=== PATIENT | female | born 1955 | race Two or more races ===

== ENCOUNTER 2025-02-02 09:38 | Emergency (ER) | payer MEDICAID, SELFPAY ==
[2025-02-02 09:47] VITALS: BP 164/78; PULSE 66; RESP 19; TEMP 36.6; O2SAT 99; BMI 31.3
--- NOTE | 2025-02-02 09:49 | EKG_ITS ---
[facility] Test Date: 2025-02-02 Pat Name: ALVARO PEACE Department: Room: - Gender: Female [employer]: : 1955 Requested By: ED Temporary Provider Order Number: [id number] Reading MD: ED Temporary Provider Measurements Intervals [place] Rate: 66 P: 6 IA: 151 QRS: 8 QRSD: 86 T: 61 QT: 404 QTc: 426 Interpretive Statements SINUS RHYTHM Compared to ECG 06/01/2022 10:04:10 Sinus bradycardia no longer present /store/S0/[id number].pdf
--- NOTE | 2025-02-02 10:01 | XR_ITS ---
Examination: PA lateral chest 2 views Technique: Upright PA lateral chest 2 views Date and time: February 02, thousand 25, 10:29 AM Indications: Onset chest pain today. Findings: Mild enlargement cardiac contour Moderate vascular congestion. No lobar pneumonia. No abdirashid pulmonary edema. Significant osteopenia. Impression: Moderate vascular congestion.
--- NOTE | 2025-02-02 10:02 | PD.EDRME ---
Rapid Medical Screening Exam RME Arrival date/time: 02/02/25 09:38 This is a 69-year-old female that comes in with multiple complaints. Patient states she has had left-sided abdominal pain since yesterday. Patient states today her abdominal pain started radiating to her chest and now her chest and the left side of her arm hurts. Patient states she gets short of breath. Patient also complains of back pain. Patient denies fever, nausea, vomiting. Patient has a history of prediabetes and high blood pressure. Patient also has a history of anxiety. Patient denies any urinary symptoms. I have greeted and performed a focused initial assessment of this patient. Initial appropriate labs ordered at this time. A comprehensive ED assessment and evaluation of the patient and analysis of all test and completion of medical decision making process will be conducted by additional ED provider. Chief Complaint: General Adult/Misc Complain Time Seen by Provider: 02/02/25 09:45 Vital signs: Vital Signs Temperature 97.8 F 02/02/25 09:47 Pulse Rate 66 02/02/25 09:47 Respiratory Rate 19 02/02/25 09:47 Blood Pressure 164/78 H 02/02/25 09:47 Pulse Oximetry (%) 99 02/02/25 09:47 Oxygen Delivery Method Room Air 02/02/25 09:47
[2025-02-02 11:05] LABS: Collection Type, Urine Voided
[2025-02-02 11:13] LABS: Bilirubin,Urine Negative (Negative); Blood,Urine Trace (Negative); Clarity,Urine Clear (Clear/Hazy); Color,Urine Colorless (Lt Yel-Yel); Culture Indicated,Urine Not Indicated; Glucose, Urine Negative (Negative); Ketones,Urine Negative (Negative); Leukocyte Esterase,Urine Negative (Negative); Nitrite,Urine Negative (Negative); PH,Urine 6.5 (5.0-7.0); Protein,Urine Negative (Neg - Trace); RBC,Urine 2 /hpf (0-3); Specific Gravity,Urine 1.010 (1.001-1.035); Squamous Epithelial Cell,Urine < 1 /hpf (0-5); Urobilinogen,Urine Negative mg/dL (0.0-1.0); WBC,Urine 1 /hpf (0-5)
[2025-02-02 12:06] LABS: Basophils # (Auto) 0.0 Thou/mm3 (0.0-0.2); Basophils % (Auto) 1 % (0-2.5); Eosinophils # (Auto) 0.1 Thou/mm3 (0.0-0.5); Eosinophils % (Auto) 2 % (0-10); Hematocrit 37.0 % (36.0-46.0); Hemoglobin 12.1 g/dL (12.0-16.0); Immature Granulocytes Auto 0.09 Thou/mm3 (0.00-0.00); Lymphocytes # (Auto) 1.9 Thou/mm3 (1.0-4.8); Lymphocytes % (Auto) 33 % (10-50); Mean Corpuscular HGB Conc 32.7 g/dl (31.0-37.0); Mean Corpuscular Hemoglobin 30.0 pg (25.0-35.0); Mean Corpuscular Volume 92 fL (80-100); Monocytes # (Auto) 0.5 Thou/mm3 (0.0-0.8); Monocytes % (Auto) 8 % (0-12); Neutrophils # (Auto) 3.1 Thou/mm3 (1.8-7.7); Neutrophils % (Auto) 54 % (37-80); Nucleated Red Blood Cell # 0.00 Thou/mm3 (0.00-0.00); Nucleated Red Blood Cell % 0 /100 WBC (0); Platelet Count 205 Thou/mm3 (140-440); RDW Standard Deviation 45.9 fL (36.4-46.3); Red Blood Count 4.03 Miln/mm3 (4.00-5.20); White Blood Count 5.7 Thou/mm3 (3.6-11.0)
[2025-02-02 12:16] LABS: B-Type Natriuretic Peptide 33 pg/mL (0-100)
[2025-02-02 12:18] LABS: Alanine Aminotransferase 18 U/L (10-49); Albumin, Serum 4.4 gm/dL (3.4-4.8); Albumin/Globulin Ratio 1.6 (1.2-2.2); Alkaline Phosphatase 58 U/L (46-116); Anion Gap 10 (7-16); Aspartate Amino Transferase 21 U/L (0-34); BUN/Creatinine Ratio 19 Ratio (12-20); Bilirubin,Total 0.4 mg/dL (0.3-1.2); Blood Urea Nitrogen 13 mg/dL (9-23); Calcium 9.3 mg/dL (8.3-10.6); Calcium (Corrected) 9.3 mg/dL (8.5-10.1); Carbon Dioxide 27.2 mMol/L (20.0-31.0); Chloride 103 mMol/L (98-107); Creatinine (Component) 0.7 mg/dL (0.6-1.3); Estimated Creatinine Clearance 80.7 mL/min (>60); Globulin 2.8 gm/dL (2.3-3.5); Glucose 110 mg/dL (74-106); Lipase 30 U/L (12-53); Osmolality,Calculated 280 (275-295); Potassium 4.0 mMol/L (3.4-5.1); Sodium 140 mMol/L (136-145); Total Protein 7.2 gm/dL (5.7-8.2); Troponin I < 0.002 ng/mL (0.0-0.045); eGFR > 60 See Note
--- NOTE | 2025-02-02 12:20 | PD.EDCHEST ---
ED Chest Pain RME/HPI General Chief Complaint: General Adult/Misc Complain Stated Complaint: LEFT SIDED WHOLE BODY PAIN Time Seen by Provider: 02/02/25 09:45 Arrival date/time: 02/02/25 09:38 Limitations: no limitations RME / HPI RME / HPI narrative: 69-year-old female who is here today with a 3-day history of chest pain and back pain. She endorses some mild abdominal pain, nausea, but no vomiting. She has no lower leg edema. No fevers or chills. She denies a history anxiety although there is past documentation of this. She has a history of hypertension and acid reflux. No history of ACS or thrombus. Related Data Home Medications ?Medication ?Instructions ?Recorded ?Confirmed alprazolam 0.25 mg tablet 0.25 mg PO BID PRN Anxiety 12/27/17 11/14/23 Held on 06/07/22. Instructions: Resume on 06/08/22. diltiazem HCl 120 mg tablet 120 mg PO DAILY 12/27/17 11/14/23 hydrochlorothiazide 12.5 mg capsule 12.5 mg PO QAM 12/27/17 11/14/23 amlodipine 5 mg tablet 5 mg PO QDAY 09/13/22 11/14/23 aspirin 81 mg tablet,delayed 81 mg PO QDAY 09/13/22 11/14/23 release (Adult Low Dose Aspirin) buspirone 15 mg tablet 15 mg PO BID 09/13/22 11/14/23 fluoxetine 20 mg capsule 20 mg PO QDAY 09/13/22 11/14/23 loratadine 10 mg tablet 10 mg PO QDAY 09/13/22 11/14/23 losartan 100 mg tablet 100 mg PO QDAY 09/13/22 11/14/23 pantoprazole 40 mg tablet,delayed 40 mg PO QDAY 09/13/22 11/14/23 release Allergies Allergy/AdvReac Type Severity Reaction Status Date / Time No Known Allergies Allergy Verified 02/02/25 09:43 Review of Systems Review of Systems Systems Reviewed: All systems reviewed, normal except as documented ED Exam General Limitations: Present no limitations General appearance: Present alert and in no apparent distress Head Head exam: Present atraumatic Eye Eye exam: Present normal appearance, PERRL and EOMI ENT ENT exam: Present normal exam, normal oropharynx and mucous membranes moist Neck Neck exam: Present normal inspection, full ROM and trachea midline Chest Chest inspection: Present normal inspection and symmetric chest wall rise Respiratory Respiratory exam: Present normal lung sounds bilaterally Cardiovascular Cardiovascular exam: Present regular rate, normal rhythm and normal heart sounds Abdominal Exam Abdominal exam: Present soft and normal bowel sounds Extremities Exam Extremities exam: Present normal inspection and full ROM Back Exam Back exam: Present normal inspection and full ROM Neurological Exam Neurological exam: Present alert and oriented X3 Psychiatric Psychiatric exam: Present normal affect and normal mood Skin Skin exam: Present warm, dry, intact and normal color Course Quality Measures none Orders Category Date Time Status EKG (ED ONLY) *Do not use* NOW Care 02/02/25 09:49 Completed EKG (ED Only) Stat Exams 02/02/25 09:49 Draft XR chest 2V Stat Exams 02/02/25 10:01 Completed BNP [B-Type Natriuretic Peptide] Stat Lab 02/02/25 11:22 Completed CBC Stat Lab 02/02/25 11:22 Completed Comprehensive Metabolic Panel Stat Lab 02/02/25 11:22 Completed Lipase Stat Lab 02/02/25 11:22 Completed Troponin I Stat Lab 02/02/25 11:22 Completed Urinalysis, C/S if Indicated Stat Lab 02/02/25 10:52 Completed Vital Signs Vital signs: Vital Signs Temperature 97.8 F 02/02/25 09:47 Pulse Rate 66 02/02/25 09:47 Respiratory Rate 19 02/02/25 09:47 Blood Pressure 164/78 H 02/02/25 09:47 Pulse Oximetry (%) 99 02/02/25 09:47 Oxygen Delivery Method Room Air 02/02/25 09:47 Chest Pain MDM Narrative MDM Narrative:: 69-year-old female who is here today with 3-day history of chest pain, back pain, abdominal discomfort. She has a history of hypertension and anxiety. No history of ACS or past thrombus. Her workup here is essentially unremarkable. Her vital signs are stable. She is mildly anxious appearing. She has no lower leg edema. No murmurs are appreciated. Lung tones are clear. I do believe the patient be discharged from the ER for outpatient follow-up. She does follow-up with her primary doctor. We discussed return precautions. She agrees to return as needed for any worsening or emergent changes. Patient data External records reviewed:: [facility] previous records Clinical information provided by:: patient Social determinants that could affect healthcare access:: none Patient has the following chronic illnesses:: Hypertension, anxiety How is presenting disease/condition affected by chronic disease/condition?: exacerbated by Evaluation data The following diagnostics were reviewed and interpreted by me:: lab results (Troponin is negative. BNP is within normal limits, CBC is unremarkable. No metabolic derangement was noted), radiology exam(s) (Clear and expanded lungs without any mass or infiltrate) and EKG tracing(s) (Normal sinus rhythm at [address] changes. There are inverted T waves at V1 and V2.) Lab and/or radiology exams considered but not ordered:: n/a Interpretation Summary: No leukocytosis or anemia. Troponin is negative BNP is unremarkable. Chest reveals clear lungs without mass or infiltrate. EKG is benign Medications / Prescriptions Medications or Prescriptions considered but not ordered:: n/a Medication administrations:: n/a Consultations Consultation(s) initiated? (list below): No Diagnosis Chest Pain Differential Diagnosis: atypical chest pain, st elevation myocardial infarction and costochondritis Most likely diagnosis given after review of the tests above:: Anxiety, chest pain Admission Indicated Admission indicated?: not indicated Admission Request Was there a request for admission?: No Disposition Plan Disposition Plan: Discharge Discharge Attestation Discharge Attestation: The patient and all family members were given an opportunity to ask questions and understood the discharge instructions. Discharge instructions specifically effects, indications for sooner follow up or return to the emergency department, and the expected course of current diagnosis. Patient condition: Stable Discharge Plan Plan Patient Disposition: HOME (Self Care) Patient condition on transfer: Stable Prescriptions/Referrals Prescriptions/Med Rec: No Action amlodipine 5 mg tablet 5 mg PO QDAY loratadine 10 mg tablet 10 mg PO QDAY aspirin [Adult Low Dose Aspirin] 81 mg tablet,delayed release (DR/EC) 81 mg PO QDAY buspirone 15 mg tablet 15 mg PO BID pantoprazole 40 mg tablet,delayed release (DR/EC) 40 mg PO QDAY losartan 100 mg tablet 100 mg PO QDAY fluoxetine 20 mg capsule 20 mg PO QDAY diltiazem HCl 120 mg Tablet 120 mg PO DAILY alprazolam 0.25 mg Tablet 0.25 mg PO BID PRN (Reason: Anxiety) hydrochlorothiazide 12.5 mg Capsule 12.5 mg PO QAM Referrals: Blanca Patel PA-C [Primary Care Provider] - In 1 week Problem List Clinical Impression: Chest pain, Anxiety Patient/Caregiver Discharge Instructions Education Materials: Anxiety Disorders Tx Therapy, ED Chest Pain, Noncardiac Additional Instructions: - Your workup today was unremarkable for any acute cardiogenic disease. - Please continue to follow-up with your primary doctor. - Continue your anxiety therapies. - Return as needed for any worsening or emergent changes. Print Language: [place]ian Stand Alone Forms: Malena Award Info., Patient Portal Info Letter
[2025-02-02 12:29] VITALS: BP 131/79; PULSE 62; RESP 17; TEMP 36.9; O2SAT 99
== END 2025-02-02 12:45 | disposition home or self-care (01) ==
PROVIDERS: Nurse Practitioner Family; Emergency Provider Emergency Medicine; PCP Physician Assistant Medical
DX: R07.9 Chest pain, unspecified (principal); F41.9 Anxiety disorder, unspecified; I10 Essential (primary) hypertension; K21.9 Gastro-esophageal reflux disease without esophagitis; R09.89 Other specified symptoms and signs involving the circulatory and respiratory systems
CPT/HCPCS: 36415; 71046; 80053; 81001; 83690; 83880; 84484; 85025; 93005; 99283